=== PATIENT | male | born 1955 | race Caucasian/White ===

== ENCOUNTER 2021-03-22 01:24 | Inpatient (IN) | payer OTHER ==
[~2021-03-22] VITALS: Ht 177.8 cm; Wt 69.9 kg
[2021-03-22] MEDS ORDERED: TRAZ-182 PO (02:13)
[2021-03-22] MEDS ORDERED: ESCI20TA PO (02:13)
[2021-03-22] MEDS ORDERED: LISI10TA29 PO (02:13)
[2021-03-22] MEDS ORDERED: MEMA10TA PO (02:13)
[2021-03-22] MEDS ORDERED: METF-442 PO (02:13)
[2021-03-22] MEDS ORDERED: RISP0.5T65 PO (02:13)
[2021-03-22] MEDS ORDERED: MELA3TAB41 PO (02:13)
[2021-03-22] MEDS ORDERED: MAGNESIUM HYDROXIDE 30 ML LIQUID UDC PO PRN (02:45)
[2021-03-22] MEDS ORDERED: BLOOD SUGAR DIAGNOSTIC 1 EACH STRIP VI ONE (02:45)
[2021-03-22] MEDS ORDERED: ACETAMINOPHEN 650 MG SUPP.RECT RC PRN (02:45)
[2021-03-22] MEDS ORDERED: LORAZEPAM 0.5 MG TABLET PO PRN (02:45)
[2021-03-22] MEDS ORDERED: MAG HYDROX/AL HYDROX/SIMETH 30 ML LIQUID UDC PO PRN (02:45)
[2021-03-22] MEDS ORDERED: ACETAMINOPHEN 325 MG TABLET PO PRN (02:45)
[2021-03-22 03:35] VITALS: BP 100/65
[2021-03-22] MEDS ORDERED: ZOLPIDEM 5 MG TABLET PO PRN (03:45)
[2021-03-22 07:30] VITALS: BP 102/71
[2021-03-22] MEDS: LORAZEPAM 1 MG TABLET PO PRN ×2 (14:01→16:27)
[2021-03-22 16:00] VITALS: BP 100/56
[2021-03-22] MEDS: risperiDONE 0.5 MG TABLET PO SCH (16:19)
[2021-03-22 19:57] VITALS: BP 93/62
[2021-03-22] MEDS: TRAZODONE 50 MG TABLET PO SCH (22:09)
[2021-03-22] MEDS: MEMANTINE HCL 5 MG TABLET PO SCH (22:11)
[2021-03-23 07:05] LABS: BILIRUBIN,TOTAL 0.6 mg/dL (0.2-1.0); CREATININE 1.1 mg/dL (0.6-1.3); POTASSIUM 4.3 mmol/L (3.5-5.1); TOTAL PROTEIN, SERUM 6.9 g/dL (6.4-8.2)
[2021-03-23 07:30] VITALS: BP 96/57
[2021-03-23] MEDS: MEMANTINE HCL 5 MG TABLET PO SCH ×2 (08:05→20:16)
[2021-03-23] MEDS: risperiDONE 0.5 MG TABLET PO SCH ×2 (08:05→16:45)
[2021-03-23 16:42] VITALS: BP 103/60
[2021-03-23] MEDS: TRAZODONE 50 MG TABLET PO SCH (20:16)
[2021-03-23 21:34] VITALS: BP 117/75
[2021-03-24 07:46] VITALS: BP 113/63
[2021-03-24] MEDS: risperiDONE 0.5 MG TABLET PO SCH ×2 (08:46→16:08)
[2021-03-24] MEDS: MEMANTINE HCL 5 MG TABLET PO SCH ×2 (08:46→20:27)
[2021-03-24 16:28] VITALS: BP 115/70
[2021-03-24 20:00] VITALS: BP 108/78
[2021-03-24] MEDS: TRAZODONE 50 MG TABLET PO SCH (20:27)
[2021-03-24] MEDS: Z GUARD REMEDY PASTE 57 GM TUBE TOP PRN (20:27)
[2021-03-24] MEDS: MELATONIN 3 MG TABLET PO PRN (20:27)
[2021-03-25] MEDS: LORAZEPAM 1 MG TABLET PO PRN (02:14)
[2021-03-25 07:52] VITALS: BP 99/48
[2021-03-25] MEDS: LISINOPRIL 10 MG TABLET PO SCH (09:00)
[2021-03-25] MEDS: risperiDONE 0.5 MG TABLET PO SCH ×2 (09:04→16:27)
[2021-03-25] MEDS: METFORMIN HCL 500 MG TABLET PO SCH ×2 (09:04→17:11)
[2021-03-25] MEDS: MEMANTINE HCL 5 MG TABLET PO SCH ×2 (09:04→20:30)
[2021-03-25 16:54] VITALS: BP 112/69
[2021-03-25 19:58] VITALS: BP 118/64
[2021-03-25] MEDS: TRAZODONE 50 MG TABLET PO SCH (20:29)
[2021-03-25] MEDS: MELATONIN 3 MG TABLET PO PRN (20:29)
[2021-03-25] MEDS: Z GUARD REMEDY PASTE 57 GM TUBE TOP PRN (21:44)
[2021-03-26 07:30] VITALS: BP 100/70
[2021-03-26] MEDS: LISINOPRIL 10 MG TABLET PO SCH (08:35)
[2021-03-26] MEDS: risperiDONE 0.5 MG TABLET PO SCH ×2 (08:35→16:43)
[2021-03-26] MEDS: MEMANTINE HCL 5 MG TABLET PO SCH ×2 (08:35→20:23)
[2021-03-26] MEDS: METFORMIN HCL 500 MG TABLET PO SCH ×2 (08:35→17:21)
[2021-03-26] MEDS: LORAZEPAM 1 MG TABLET PO PRN (13:08)
[2021-03-26 15:08] VITALS: BP 97/61
[2021-03-26 20:19] VITALS: BP 108/71
[2021-03-26] MEDS: TRAZODONE 50 MG TABLET PO SCH (20:23)
[2021-03-26] MEDS: MELATONIN 3 MG TABLET PO PRN (21:35)
[2021-03-27 07:30] VITALS: BP 101/67
[2021-03-27] MEDS: MEMANTINE HCL 5 MG TABLET PO SCH ×2 (08:15→20:14)
[2021-03-27] MEDS: METFORMIN HCL 500 MG TABLET PO SCH ×2 (08:15→17:43)
[2021-03-27] MEDS: LISINOPRIL 10 MG TABLET PO SCH (08:17)
[2021-03-27] MEDS ORDERED: risperiDONE 0.5 MG TABLET PO SCH (09:00)
[2021-03-27] MEDS ORDERED: risperiDONE 1 MG TABLET PO SCH (12:30)
[2021-03-27 15:40] VITALS: BP 101/69
[2021-03-27 20:07] VITALS: BP 101/63
[2021-03-27] MEDS: TRAZODONE 50 MG TABLET PO SCH (20:14)
[2021-03-27] MEDS: risperiDONE 1 MG TABLET PO SCH (20:15)
[2021-03-27] MEDS: MELATONIN 3 MG TABLET PO PRN (21:49)
[2021-03-28 07:30] VITALS: BP 98/59
[2021-03-28] MEDS: MEMANTINE HCL 5 MG TABLET PO SCH ×2 (08:00→20:13)
[2021-03-28] MEDS: METFORMIN HCL 500 MG TABLET PO SCH ×2 (08:00→17:28)
[2021-03-28] MEDS: LISINOPRIL 10 MG TABLET PO SCH (08:01)
[2021-03-28] MEDS: risperiDONE 1 MG TABLET PO SCH ×2 (08:02→20:13)
[2021-03-28] MEDS: LORAZEPAM 1 MG TABLET PO PRN (12:12)
[2021-03-28 16:00] VITALS: BP 97/64
[2021-03-28 20:13] VITALS: BP 106/67
[2021-03-28] MEDS: TRAZODONE 50 MG TABLET PO SCH (20:13)
[2021-03-28] MEDS: MELATONIN 3 MG TABLET PO PRN (21:45)
[2021-03-29] MEDS: LORAZEPAM 1 MG TABLET PO PRN (03:55)
[2021-03-29 07:30] VITALS: BP 101/60
[2021-03-29] MEDS: MEMANTINE HCL 5 MG TABLET PO SCH ×2 (08:00→20:25)
[2021-03-29] MEDS: METFORMIN HCL 500 MG TABLET PO SCH ×2 (08:00→17:03)
[2021-03-29] MEDS: risperiDONE 1 MG TABLET PO SCH ×2 (08:00→20:25)
[2021-03-29] MEDS: LISINOPRIL 5 MG TABLET PO SCH (08:01)
[2021-03-29 16:00] VITALS: BP 107/71
[2021-03-29 20:00] VITALS: BP 121/67
[2021-03-29] MEDS: TRAZODONE 50 MG TABLET PO SCH (20:25)
[2021-03-30] MEDS: LORAZEPAM 1 MG TABLET PO PRN (02:07)
[2021-03-30 07:58] VITALS: BP 137/65
[2021-03-30] MEDS: MEMANTINE HCL 5 MG TABLET PO SCH ×2 (08:37→21:09)
[2021-03-30] MEDS: LISINOPRIL 5 MG TABLET PO SCH (08:37)
[2021-03-30] MEDS: METFORMIN HCL 500 MG TABLET PO SCH ×2 (08:37→17:18)
[2021-03-30] MEDS: risperiDONE 1 MG TABLET PO SCH ×2 (08:37→21:09)
[2021-03-30 16:45] VITALS: BP 91/59
[2021-03-30 20:22] VITALS: BP 99/58
[2021-03-30] MEDS: TRAZODONE 50 MG TABLET PO SCH (21:00)
[2021-03-30] MEDS: MELATONIN 3 MG TABLET PO PRN (21:26)
[2021-03-30 21:37] VITALS: BP 102/66
[2021-03-30] MEDS: Z GUARD REMEDY PASTE 57 GM TUBE TOP PRN (23:15)
[2021-03-31] MEDS: LORAZEPAM 1 MG TABLET PO PRN (04:37)
[2021-03-31 07:37] VITALS: BP 96/68
[2021-03-31 08:06] VITALS: BP 96/68
[2021-03-31] MEDS: risperiDONE 1 MG TABLET PO SCH (08:06)
[2021-03-31] MEDS: MEMANTINE HCL 5 MG TABLET PO SCH (08:06)
[2021-03-31] MEDS: METFORMIN HCL 500 MG TABLET PO SCH (08:06)
[2021-03-31] MEDS: LISINOPRIL 5 MG TABLET PO SCH (08:06)
== END 2021-03-31 12:45 | disposition home or self-care (01) | DRG 885 ==
LOC: ER 01:36 → GPS 02:59
PROVIDERS: ADMIT Psychiatry & Neurology Psychiatry; ATTEND Nurse Practitioner Acute Care
DX: F29 Unspecified psychosis not due to a substance or known physiological condition (principal); G93.41 Metabolic encephalopathy; F02.81 Dementia in other diseases classified elsewhere, unspecified severity, with behavioral disturbance; G30.9 Alzheimer's disease, unspecified; E11.9 Type 2 diabetes mellitus without complications; I10 Essential (primary) hypertension; Z79.84 Long term (current) use of oral hypoglycemic drugs; Z79.899 Other long term (current) drug therapy; I25.10 Atherosclerotic heart disease of native coronary artery without angina pectoris; E78.5 Hyperlipidemia, unspecified; Z86.59 Personal history of other mental and behavioral disorders
CPT/HCPCS: 36415; A4663